=== PATIENT | male | born 1980 | race Caucasian/White ===

== ENCOUNTER 2018-06-03 14:30 | Emergency (ER) | payer BC ==
[2018-06-03 14:44] VITALS: RESP 18; TEMP 98.1
[2018-06-03] MEDS ORDERED: KETOROLAC 60 MG/2 ML VIAL IM STA (15:14)
[2018-06-03] MEDS ORDERED: DIPH,PERTUS(ACELL)TETVAC-LF 0.5 ML VIAL IM ONE (15:16)
--- NOTE | 2018-06-03 15:19 | ED ---
General Adult HPI - General Chief complaint: Back Pain/Injury Stated complaint: FALL RT RIB PAIN Source: patient, RN notes reviewed, old records reviewed Mode of arrival: ambulatory Limitations: no limitations - History of Present Illness Initial comments: 38-year-old male patient with no pertinent past medical history presents to ED with right rib pain. Patient states that approximately 3 days ago he was walking, tripped fell on concrete onto his right ribs. Patient was able to brace his fall with his right elbow slightly. Patient denies head or neck trauma, loss of consciousness, any other injury. Patient presents to ED because he started having pain in his right ribs. Patient denies any other symptoms. Patient has not taken anything for these symptoms. Systemic: Pt denies fatigue, myalgia, fever/chills, rash. Pt denies weakness, night sweats, weight loss. Neuro: Pt denies headache, visual disturbances, syncope or pre-syncope. HEENT: Pt denies ocular discharge or irritation, otalgia, rhinorrhea, pharyngitis or notable lymphadenopathy. Cardiopulmonary: Pt denies chest pain, SOB, heart palpitations, dyspnea on exertion. Abdominal/GI: Pt denies abdominal pain, n/v/d. : Pt denies dysuria, burning w/ urination, frequency/urgency. Denies new onset urinary or bowel incontinence. MSK: Pt denies myalgia, loss of strength or function in extremities. Neuro: Pt denies new onset weakness, paresthesias. - Related Data Previous Rx's Medication Instructions Recorded Ibuprofen [Motrin] 600 mg PO Q6HR PRN #40 day 06/03/18 Allergies Allergy/AdvReac Type Severity Reaction Status Date / Time No Known Allergies Allergy Verified 06/03/18 14:40 Review of Systems ROS Statement: Those systems with pertinent positive or pertinent negative responses have been documented in the HPI. ROS Other: All systems not noted in ROS Statement are negative. Past Medical History Past Medical History: No Reported History History of Any Multi-Drug Resistant Organisms: None Reported Past Surgical History: Hernia Repair, Orthopedic Surgery Past Psychological History: Anxiety Smoking Status: Never smoker Past Alcohol Use History: Occasional Past Drug Use History: Marijuana General Exam - General Exam Comments Initial Comments: Constitutional: NAD, AOX3, Pt has pleasant affect. HEENT: NC/AT, trachea midline, neck supple, no lymphadenopathy. Posterior pharynx non erythematous, without exudates. External ears appear normal, without discharge. Mucous membranes moist. Eyes PERRLA, EOM intact. There is no scleral icterus. No pallor noted. Cardiopulmonary: RRR, no murmurs, rubs or gallops, no JVD noted. Lungs CTAB in anterior and posterior salazar. No peripheral edema. Abdominal exam: Abdomen soft and non-distended. Abdomen non-tender to palpation in all 4 quadrants. Bowel sounds active in LLQ. No hepatosplenomegaly. No ecchymosis Neuro: CN II-XII grossly intact. No nuchal rigidity. MSK: Right 5-6-7 ribs moderately tender to palpation. No significant ecchymosis. Left ribs nontender palpation. No flail chest. Sternum nontender to palpation. Upper and lower joints palpated, nontender with palpation. Mild amount of abrasion on right knee. No posterior calf tenderness bilaterally, homans sign negative bilaterally. Posterior tibialis and radial pulse +2 bilaterally. Sensation intact in upper and lower extremities. Full active ROM in upper and lower extremities, 5/5 strength. Limitations: no limitations Course Vital Signs 06/03/18 14:40 Temperature 98.1 F Pulse Rate 65 Respiratory 18 Rate Blood Pressure 158/86 O2 Sat by Pulse 99 Oximetry Medical Decision Making - Medical Decision Making 38-year-old male patient with no pertinent past medical history presents to ED with right rib pain. Patient states that approximately 3 days ago he was walking, tripped fell on concrete onto his right ribs. Patient was able to brace his fall with his right elbow slightly. Patient denies head or neck trauma, loss of consciousness, any other injury. Patient presents to ED because he started having pain in his right ribs. Patient denies any other symptoms. Physical exam displayed Right 5-6-7 ribs moderately tender to palpation. No significant ecchymosis. Left ribs nontender palpation. No flail chest. Sternum nontender to palpation. Upper and lower joints palpated, nontender with palpation. Plain film of the chest revealed no acute pathology. CT of chest without contrast revealed hairline fracture of right fifth and sixth ribs. No evidence of acute trauma injuries and lungs, no pneumothorax. Findings were explained to patient, patient verbalized understanding. Explained to patient importance of incentive spirometry. Pt rx incentive spirometry. Patient verbalized understanding. Patient given Toradol in ED, improved symptoms. Patient prescribed ibuprofen, Tylenol 3 starter pack. Patient instructed not to use together, or tylenol [address] Pt to f/u with PCP in 1-2 days. Pt to return to ED if any new signs or symptoms develop or if condition worsens in any way. Case discussed with Dr. Almaguer. Tetanus updated. Disposition Clinical Impression: Rib fracture Disposition: HOME SELF-CARE Condition: Good Instructions: Rib Fracture (ED), How to Use an Incentive Spirometer (ED) Additional Instructions: Patient to adhere to previously discussed treatment plan and will take medication(s) as directed. Patient to follow up with PCP in 1-2 days. Patient to return to ED if symptoms do not improve. Prescriptions: Ibuprofen [Motrin] 600 mg PO Q6HR PRN #40 day PRN Reason: Pain Is patient prescribed a controlled substance at d/c from ED?: No Referrals: Marni Lynn MD [Primary Care Provider] - 1-2 days
--- NOTE | 2018-06-03 15:55 | XR ---
EXAMINATION TYPE: XR chest 2V DATE OF EXAM: 06/03/2018 COMPARISON: NONE HISTORY: Pain after fall TECHNIQUE: Frontal and lateral views of the chest are obtained. FINDINGS: Heart and mediastinum are normal. Lungs are clear. Diaphragm is normal. Bony thorax appear s normal. IMPRESSION: Normal chest
--- NOTE | 2018-06-03 16:04 | CT ---
EXAMINATION TYPE: CT chest wo con DATE OF EXAM: 06/03/2018 COMPARISON: None HISTORY: RIGHT SIDE CHEST PAIN AFTER FALL INJURY X2 DAYS AGO CT DLP: 410.4 mGycm. Automated Exposure Control for Dose Reduction was Utilized. TECHNIQUE: CT scan of the thorax is performed without IV contrast. FINDINGS: The lungs are clear of infiltrate. There is no pleural effusion or pneumothorax. There is no pericard ial effusion. There is no mediastinal adenopathy. There are no hilar masses. There is 2 mm calculus p osterior right kidney. There are hairline fractures of the right sixth and seventh ribs. The shoulder joints appear intact. The thoracic vertebra appear intact. There is no evidence of compression fracture. Sternum appears no rmal. IMPRESSION: Hairline fractures right ribs. No evidence of acute traumatic injury within the lungs. No pneumothorax.
[2018-06-03] MEDS ORDERED: ACET/COD 300 MG/30 MG STARTER PACK 6 TAB BTL PO STA (16:20)
[2018-06-03 16:34] VITALS: BP 154/81; PULSE 70
== END 2018-06-03 16:33 | disposition home or self-care (01) ==
LOC: EC 14:30
DX: S22.41XA Multiple fractures of ribs, right side, initial encounter for closed fracture (principal); S80.211A Abrasion, right knee, initial encounter; Z23 Encounter for immunization; W01.0XXA Fall on same level from slipping, tripping and stumbling without subsequent striking against object, initial encounter; Y93.01 Activity, walking, marching and hiking; Y92.009 Unspecified place in unspecified non-institutional (private) residence as the place of occurrence of the external cause
CPT/HCPCS: 71046; 71250; 90715; 99284; 90471; 96372; J1885